=== PATIENT | female | born 1975 | race Caucasian/White ===

== ENCOUNTER 2016-12-28 03:07 | Inpatient (IN) | payer MEDICAID ==
[2016-12-28] MEDS ORDERED: TERBUTALINE SULFATE 1 MG/ML VIAL IV PRN (04:59)
[2016-12-28] MEDS ORDERED: LR 1,000 ML IV PRN (04:59)
[2016-12-28] MEDS ORDERED: EPSOM SALT 454 GM TP PRN (04:59)
[2016-12-28] MEDS ORDERED: OXYTOCIN/RINGERS LACTATE 1,000 ML IV PRN (04:59)
[2016-12-28] MEDS ORDERED: OLIVE OIL 118 ML BTL MISC PRN (04:59)
[2016-12-28] MEDS ORDERED: OLIVE OIL 118 ML BTL ONE ×2 (05:02→05:39)
[2016-12-28] MEDS ORDERED: AMMONIA AROMATIC 1 EACH AMP IH ONE ×2 (05:02→05:39)
[2016-12-28] MEDS ORDERED: LIDOCAINE 1% 300 MG/30 ML SDV ONE ×2 (05:02→05:38)
[2016-12-28] MEDS ORDERED: OXYTOCIN 10 UNIT/ML VIAL ONE ×2 (05:03→05:39)
[2016-12-28] MEDS ORDERED: MISOPROSTOL 200 MCG TAB ONE ×2 (05:03→05:39)
[2016-12-28] MEDS ORDERED: TERBUTALINE SULFATE 1 MG/ML VIAL ONE ×2 (05:03→05:39)
[2016-12-28] MEDS ORDERED: ONDANSETRON 4 MG/2 ML VIAL IVP PRN ×2 (05:54→07:24)
[2016-12-28 06:00] LABS: % IMMATURE GRANULYOCYTES 0.6 % (0.0-1.1); ADD DIFF? NO; ADD MORPH? NO; ADD SCAN? NO; ATYPICAL LYMPHOCYTE FLAG 0 (0-99); FRAGMENT RBC FLAG 0 (0-99); HEMOGLOBIN 14.4 g/dL (12.6-16.3); LEFT SHIFT FLG 0 (0-99); LIPEMIA HEMOLYSIS FLAG 90 (0-99); MEAN CELL HEMOGLOBIN 32.6 pg (27.9-34.1); MEAN CELL HEMOGLOBIN CONCENTR. 35.1 g/dL (32.4-36.7); MEAN CELL VOLUME 92.8 fL (81.5-99.8); PLATELET CLUMPS FLAG 0 (0-99); PLATELET COUNT 150 10^3/uL (150-400); RED BLOOD CELL COUNT 4.42 10^6/uL (4.18-5.33); RED CELL DISTRIBUTION WIDTH 12.7 % (11.5-15.2)
[2016-12-28] MEDS ORDERED: fentaNYL 2MCG/ML/BUP 0.1% RTU 100 ML BAG EP ONE (06:15)
[2016-12-28] MEDS ORDERED: BUPIVACAINE 0.25% 30 ML SDV ONE ×2 (06:15→14:04)
[2016-12-28] MEDS ORDERED: PHENYLEPHRINE HCL 100 MCG/ML SYR ONE (06:15)
[2016-12-28] MEDS ORDERED: fentaNYL 100 MCG/2 ML INJ ONE ×2 (06:16→14:04)
[2016-12-28] MEDS ORDERED: PHENYLEPHRINE HCL 100 MCG/ML SYR IVP PRN (07:24)
[2016-12-28] MEDS ORDERED: NALOXONE HCL 0.4 MG/ML INJ IVP PRN (07:24)
[2016-12-28] MEDS ORDERED: fentaNYL 2MCG/ML/BUP 0.1% RTU 100 ML EP SCH (07:30)
[2016-12-28] MEDS ORDERED: LR 500 ML IV SCH (07:30)
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
--- NOTE | 2016-12-28 12:25 | OBPROG ---
OBG Labor Progress Note Assessment/Plan: Assessment: 41 y/o @ 41 4/7 weeks in active labor Plan: Begin pushing. status reassuring. 12/28/16 12:24 Subjective: Pt beginning to feel some contractions and pelvic pressure. Objective: 12/28/16 05:40 Patient ABO/Rh A POSITIVE 12/28/16 05:40 - SVE Dilation (cm): 10 Effacement (%): 100 Station: +2 [place] Current Contraction Pattern: Regular (Q 2-3) FHR (bpm): 130 FHR Pattern Variability: Moderate FHR Category: 1 Membranes: AROM Amniotic Fluid Color: Clear Oxytocin Orders Assessment - Pre-Induction/Augmentation Assessment Gestational Age: 41 week(s) and 3 day(s) ICD10 Worksheet Patient Problems: Problems Problem Status Onset Active labor at term Acute - ICD10 Problem Qualifiers (1) Active labor at term
[2016-12-28] MEDS ORDERED: METOCLOPRAMIDE 10 MG/2 ML VIAL ONE (14:21)
[2016-12-28] MEDS ORDERED: METOCLOPRAMIDE 10 MG/2 ML VIAL IVP ONE (14:21)
[2016-12-28] MEDS ORDERED: LR 500 ML IV PRN (14:22)
--- NOTE | 2016-12-28 14:25 | OBPROG ---
OBG Labor Progress Note Assessment/Plan: Assessment: 41 y/o @ 41 4/7 weeks in active labor Plan: We gave a 250 cc IVF bolus of D5 LR and switched her IVF to D5. Will give IV Reglan in addition to the Zofran she previously received and will start pitocin to augment her contraction strength and frequency. status remains reassuring. 12/28/16 12:24 12/28/16 14:24 Subjective: Pt is feeling very tired and low energy. She is having nausea and vomiting episodes every time she tries to push and has very little strength. She denies pain with pushing. Objective: 12/28/16 05:40 Patient ABO/Rh A POSITIVE 12/28/16 05:40 - SVE Dilation (cm): 10 Effacement (%): 100 Station: +2 [place] Current Contraction Pattern: Irregular (Q 2-5) FHR (bpm): 130 FHR Pattern Variability: Moderate FHR Category: 1 Membranes: AROM Amniotic Fluid Color: Clear Oxytocin Orders Assessment - Pre-Induction/Augmentation Assessment Gestational Age: 41 week(s) and 3 day(s) ICD10 Worksheet Patient Problems: Problems Problem Status Onset Active labor at term Acute - ICD10 Problem Qualifiers (1) Active labor at term
[2016-12-28] MEDS ORDERED: OXYTOCIN/RINGERS LACTATE 500 ML IV SCH (14:30)
[2016-12-28] MEDS ORDERED: LIDO/EPI 2% **for epidural** 20 ML SDV ONE (18:32)
[2016-12-28 19:26] LABS: BASE EXCESS CORD -9.1 mEq/L (-13.6--3.2); CORD BLOOD PCO2 58.8 mmHg (37-60); PH ARTERIAL CORD BLOOD 7.17 (7.10-7.37)
[2016-12-28 19:31] LABS: PH VENOUS CORD BLOOD 7.27 (7.20-7.42)
[2016-12-28] MEDS ORDERED: SIMETHICONE 80 MG TAB CHEW PO PRN (19:55)
[2016-12-28] MEDS ORDERED: HYDROCORTISONE 0.5% CREAM TP PRN (19:55)
[2016-12-28] MEDS ORDERED: HYDROCODONE/APAP 5/325 TAB PO PRN (19:55)
--- NOTE | 2016-12-28 20:02 | OBDEL ---
Info Type: Vaginal GBS+: No Indications for Delivery: Spontaneous Labor Vaginal Delivery - Labor and Delivery Onset of Contractions Date: 12/28/16 Onset of Contractions Time: 01:00 Onset of Contractions Type: Augmented Rupture of Membranes Date: 12/28/16 Rupture of Membranes Time: 12:10 Rupture of Membranes Type: Artificial Amniotic Fluid Color: Thick Meconium Dilation Complete Date: 12/28/16 Dilation Complete Time: 18:30 Placenta Delivery Date: 12/28/16 Placenta Delivery Time: 19:13 Total Hours of Labor: 18 Non-surgical Procedures: Amniotomy Laceration: 2nd Degree Repair: 2-0, Vicryl Vaginal Sponge Count Correct: Yes Vaginal Needle Count Correct: Yes Vaginal Sweep Performed: Yes EBL: 400 Cord Gases: Cord Gases Cord Blood PCO2 58.8 mmHg (37-60) 12/28/16 19:19 Cord Base Excess -9.1 mEq/L (-13.6--3.2) 12/28/16 19:19 Cord ABG pH 7.17 (7.10-7.37) 12/28/16 19:19 Cord VBG pH 7.27 (7.20-7.42) 12/28/16 19:19 - Medications Labor Augmentation/Induction Methods Used: Pitocin Labor Augmentation/Induction Indication: Other (Specify) (inadequate contraction strength and frequency) Operative Report - Delivery Cord Gases: Cord Gases Cord Blood PCO2 58.8 mmHg (37-60) 12/28/16 19:19 Cord Base Excess -9.1 mEq/L (-13.6--3.2) 12/28/16 19:19 Cord ABG pH 7.17 (7.10-7.37) 12/28/16 19:19 Cord VBG pH 7.27 (7.20-7.42) 12/28/16 19:19 Assissted Delivery Assisted Delivery Type: Vacuum Station: +2 Pop offs (Total): 3 Pulls (Total): 7 Assisted Delivery Comment: Prolonged second stage and maternal exhaustion. Poor pushing efforts. Required vacuum assist, vacuum was not applied to the head during the entire procedure. It was only applied for the individual push and application. Data [place] Delivery Date: 12/28/16 Delivery Time: 19:11 MADDY: 12/18/16 Gestational Age: 41 week(s) and 3 day(s) Sex of Infant: Male Score (1 Min): 8 Score (5 Min): 9 ICD10 Worksheet Patient Problems: Problems Problem Status Onset Active labor at term Acute Status post vacuum-assisted vaginal delivery Acute - ICD10 Problem Qualifiers (1) Active labor at term (2) Status post vacuum-assisted vaginal delivery
[2016-12-29] MEDS: ACETAMINOPHEN 325 MG TAB PO PRN ×3 (02:59→15:53)
[2016-12-29] MEDS: DOCUSATE SODIUM 100 MG CAP PO PRN ×2 (07:42→20:18)
[2016-12-29 09:13] VITALS: O2SAT 95
[2016-12-29] MEDS: IRON POLYSAC/IRON HEME 28 MG TAB PO SCH ×2 (09:45→20:18)
[2016-12-29] MEDS: IBUPROFEN 600 MG TAB PO PRN (20:18)
--- NOTE | 2016-12-29 20:22 | OBPP ---
Progress Note Assessment/Plan: Assessment: PPD 1 s/p VAVD anemic Plan: Routine care, iron BID 12/29/16 20:15 Subjective: Pt doing well. Reports BF well. bld has decreased today. urinating fine. Bottom very sore - using [place] for pain. States she was avoiding ibu due to stomach upset in past. Objective: 12/29/16 05:55 Patient ABO/Rh A POSITIVE 12/28/16 05:40 Temp Pulse Resp BP Pulse Ox 36.9 C 83 17 101/69 95 12/29/16 09:00 12/29/16 09:00 12/29/16 09:00 12/29/16 09:00 12/29/16 09:00 Uterine Position/Fundal Height: Umbilicus -1 Uterine Tone: Firm Physical Exam - Physical Exam General Appearance: WD/WN, alert Abdomen: non-tender, soft, other (normal lochia) Extremities: non-tender, pedal edema (minimal) Skin: normal color, warm/dry Neuro/Psych: normal mood/affect
[2016-12-30] MEDS: IBUPROFEN 600 MG TAB PO PRN ×2 (02:49→08:07)
[2016-12-30] MEDS: DOCUSATE SODIUM 100 MG CAP PO PRN (08:06)
[2016-12-30] MEDS: IRON POLYSAC/IRON HEME 28 MG TAB PO SCH (08:06)
[2016-12-30 09:00] VITALS: BP 112/68; PULSE 78; RESP 20; TEMP 97
--- NOTE | 2016-12-30 11:42 | OBPP ---
Progress Note Assessment/Plan: Assessment: well. PAin well managed ff@u scant rubra lochia voiding without difficulty perineum approximated Plan:discharge to home with instructions discussed pain management, , depression, pericare, rest, contraception, pelvic rest, fu 4 weeks and 6 weeks 12/30/16 11:40 Subjective: doing well. denies difficulties. PAin well managed. well. Objective: 12/29/16 05:55 Patient ABO/Rh A POSITIVE 12/28/16 05:40 Temp Pulse Resp BP Pulse Ox 36.1 C 78 20 112/68 95 12/30/16 08:59 12/30/16 08:59 12/30/16 08:59 12/30/16 08:59 12/29/16 20:20 Physical Exam - Physical Exam General Appearance: WD/WN, alert, no apparent distress Abdomen: other (ff@u) Extremities: normal range of motion, Scot's sign (negative bilaterally) DTR- Lower Extremities: Knee (R): 1+, Knee (L): 1+ (no clonus) Skin: normal color, warm/dry Neuro/Psych: no motor/sensory deficits, alert, normal mood/affect, oriented x 3
--- NOTE | 2016-12-30 11:45 | OBGCSDC ---
General Delivery Information - General Info : 2 Para: 1 Delivery Physician/CNM: Pratibha Pearl Labs: Patient ABO/Rh A POSITIVE 12/28/16 05:40 Hct 30.2 % (38.0-47.0) L D 12/29/16 05:55 Vaginal - Diagnosis Labor: Augmented Rupture of Membranes Type: Artificial Amniotic Fluid Color: Thick Meconium Laceration: 2nd Degree Repair: 2-0, Vicryl - Operations/Procedures Assisted Delivery Type: Vacuum Non-surgical Procedures: Amniotomy L&D Analgesia/Anesthesia Type: Epidural, Nitrous - Hospital Course Antepartum: AMA, hypothyroid, depression Intrapartum: admitted in labor. epidural for pain relief, anemic, meconium,prolonged second stage vacuum assist : well. PAin well managed, Doing well. VS wnl - Delivery Non-surgical Procedures: Amniotomy L&D Analgesia/Anesthesia Type: Epidural, Nitrous Data [place] Delivery Date: 12/28/16 Delivery Time: 19:11 MADDY: 12/18/16 Gestational Age: 41 week(s) and 5 day(s) Sex of : Male [place] Weight (gm): 3592 g Score (1 Min): 8 Score (5 Min): 9
== END 2016-12-30 14:00 | disposition home or self-care (01) | DRG 775 ==
LOC: FLD 03:07 → FOB 22:24
PROVIDERS: ADMIT Obstetrics & Gynecology; ATTEND Obstetrics & Gynecology
PROC: 10907ZC Drainage of Amniotic Fluid, Therapeutic from Products of Conception, Via Natural or Artificial Opening (ICD-10-PCS; principal; 2016-12-28)
PROC: 0KQM0ZZ Repair Perineum Muscle, Open Approach (ICD-10-PCS; principal; 2016-12-28)
PROC: 10D07Z6 Extraction of Products of Conception, Vacuum, Via Natural or Artificial Opening (ICD-10-PCS; principal; 2016-12-28)
DX: O48.0 Post-term pregnancy (principal); O70.1 Second degree perineal laceration during delivery; O75.81 Maternal exhaustion complicating labor and delivery; O63.1 Prolonged second stage (of labor); O99.284 Endocrine, nutritional and metabolic diseases complicating childbirth; E03.9 Hypothyroidism, unspecified; O77.0 Labor and delivery complicated by meconium in amniotic fluid; O90.81 Anemia of the puerperium; Z87.820 Personal history of traumatic brain injury; Z3A.41 41 weeks gestation of pregnancy; Z37.0 Single live birth
CPT/HCPCS: J2370; J2405; J2590; J2765; J3010; J3105